=== PATIENT | female | born 1990 | race African-American/Black ===

== ENCOUNTER 2017-01-09 10:19 | Emergency (ER) | payer MEDICAID ==
[~2017-01-09] VITALS: Ht 152.4 cm; Wt 55.3 kg
[2017-01-09 11:41] LABS: BASOPHIL % 0.5 % (0-2); PLATELET COUNT 228 x10^3mcL (130-400); RED CELL DISTRIBUTION WIDTH 13.1 % (11.5-14.5)
[2017-01-09 11:55] LABS: CARBON DIOXIDE 24.6 mmol/L (21-32); CHLORIDE SERUM 101 mmol/L (98-107); CREATININE SERUM 0.8 mg/dL (0.6-1.0); GFR1 > 60 mL/min; GLUCOSE SERUM 100 mg/dL (74-106); POTASSIUM SERUM 3.4 mmol/L (3.5-5.1); SODIUM SERUM 135 mmol/L (136-145)
[2017-01-09 12:00] LABS: ALBUMIN 4.3 g/dL (3.4-5.0); ALKALINE PHOSPHATASE 51 U/L (46-116); ALT/SGPT 25 U/L (14-59); AST/SGOT 18 U/L (15-37); BILIRUBIN TOTAL 0.73 mg/dL (0.20-1.00); LIPASE 90 IU/L (73-393); TOTAL PROTEIN, SERUM 7.9 g/dL (6.4-8.2)
[2017-01-09 12:01] LABS: AMYLASE 174 U/L (25-115)
[2017-01-09 12:02] LABS: UA SPECIFIC GRAVITY 1.025 (1.005-1.035); microscopic required? YES; urine erythrocyte NEGATIVE (NEGATIVE)
[2017-01-09 15:10] VITALS: BP 111/85
== END 2017-01-09 15:10 | disposition home or self-care (01) ==
LOC: ED 10:19
PROVIDERS: Emergency Medicine
DX: O21.0 Mild hyperemesis gravidarum (principal); O99.281 Endocrine, nutritional and metabolic diseases complicating pregnancy, first trimester; E87.6 Hypokalemia; Z3A.01 Less than 8 weeks gestation of pregnancy
CPT/HCPCS: J3411; J3490; J7030

== ENCOUNTER 2019-02-14 16:25 | Emergency (ER) | payer SELFPAY ==
[~2019-02-14] VITALS: Ht 152.4 cm; Wt 60.0 kg
[2019-02-14 16:37] VITALS: Ht 152.4 cm; Wt 60.0 kg
[2019-02-14 17:48] VITALS: BP 114/72
== END 2019-02-14 17:48 | disposition home or self-care (01) ==
LOC: ED 16:25
DX: R07.89 Other chest pain (principal); M25.531 Pain in right wrist; R51 Headache; V49.9XXA Car occupant (driver) (passenger) injured in unspecified traffic accident, initial encounter; Y93.I9 Activity, other involving external motion; Y92.413 State road as the place of occurrence of the external cause; Y99.8 Other external cause status
CPT/HCPCS: Q0092

== ENCOUNTER 2019-08-06 00:46 | Emergency (ER) | payer OTHER | END 2019-08-06 02:06 | disposition other institution (70) | LOC: ED 00:46 | DX: Z02.89 Encounter for other administrative examinations (principal) ==

== ENCOUNTER 2019-08-06 00:46 | Emergency (ER) | payer SELFPAY ==
[~2019-08-06] VITALS: Ht 152.4 cm; Wt 59.0 kg
[2019-08-06 01:02] VITALS: BP 142/109; Ht 152.4 cm; Wt 59.0 kg
== END 2019-08-06 02:06 | disposition other institution (70) ==
LOC: ED 00:46
DX: S00.83XA Contusion of other part of head, initial encounter (principal); Y04.8XXA Assault by other bodily force, initial encounter; Y93.89 Activity, other specified; Y92.89 Other specified places as the place of occurrence of the external cause; Y99.8 Other external cause status

== ENCOUNTER 2019-11-29 11:18 | Emergency (ER) | payer MEDICAID ==
[~2019-11-29] VITALS: Ht 154.9 cm; Wt 64.4 kg
[2019-11-29 11:42] VITALS: BP 130/75
[2019-11-29 12:34] LABS: BASOPHIL % 0.4 % (0-2); PLATELET COUNT 200 x10^3mcL (130-400); RED CELL DISTRIBUTION WIDTH 13.6 % (11.5-14.5)
[2019-11-29 13:44] LABS: ALBUMIN 3.7 g/dL (3.4-5.0); BILIRUBIN TOTAL 0.2 mg/dL (0.20-1.00); CALCIUM 8.6 mg/dL (8.5-10.1); CARBON DIOXIDE 27.8 mmol/L (21-32); CREATININE SERUM 1.2 mg/dL (0.6-1.0); POTASSIUM SERUM 3.3 mmol/L (3.5-5.1); TOTAL PROTEIN, SERUM 6.6 g/dL (6.4-8.2)
[2019-11-29 14:01] LABS: AMPHETAMINE QUAL UR NEGATIVE (See below)
== END 2019-11-29 14:36 | disposition home or self-care (01) ==
LOC: ED 11:18
PROVIDERS: Emergency Medicine
DX: E87.6 Hypokalemia (principal); R20.2 Paresthesia of skin; L42 Pityriasis rosea
CPT/HCPCS: J7060; Q0092